=== PATIENT | male | born 1975 | race Native Hawaiian/Other Pacific Islander ===

== ENCOUNTER 2018-04-01 12:26 | Inpatient (IN) | payer OTHER ==
[2018-04-01] MEDS ORDERED: VITAMIN B-1 100 MG, FOLVITE 1 MG, INFUVITE 10 ML in NACL 0.9% 1000 ML 1,000 ML IV ONE (16:04)
[2018-04-01] MEDS: ATIVAN IV PRN ×7 (16:22→22:55)
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
[2018-04-01 16:38] LABS: Basophils # (Auto) 0.1 K/mm3 (0.0-0.1); Basophils % (Auto) 0.7 % (0.0-1.8); Eosinophils % (Auto) 0.1 % (0.0-4.3); Hemoglobin 8.6 gm/dl (11.8-15.2); Lymphocytes # (Auto) 0.7 K/mm3 (1.2-5.4); Lymphocytes % (Auto) 6.3 % (13.4-35.0); Mean Corpuscular HGB Conc 32 % (32-34); Mean Corpuscular Hemoglobin 27 pg (28-32); Mean Corpuscular Volume 84 fl (84-94); Monocytes # (Auto) 0.6 K/mm3 (0.0-0.8); Monocytes % (Auto) 5.3 % (0.0-7.3); Platelet Count 104 K/mm3 (140-440); Red Cell Distribution Width 17.3 % (13.2-15.2)
[2018-04-01 16:57] LABS: Alanine Aminotransferase 66 units/L (7-56); Albumin 4.5 g/dL (3.9-5); BUN/Creatinine Ratio 10; Blood Urea Nitrogen 6 mg/dL (9-20); Calcium 8.8 mg/dL (8.4-10.2); Hemolysis Index 0
--- NOTE | 2018-04-01 17:23 | History and Physical Report ---
History of Present Illness Chief complaint: Confused History of present illness: 43 YO Male with ETOH Dependence, HTN presents to ED for evaluation. Pt is confused and unable to provide history. Pt history taken from ED staff and patient Father. As per family, the patient normally drinks alcohol daily, but has not drank any alcohol in the past 2 days. pt has experienced nausea, vomiting, tremors, headache, as well as a witnessed seizure in the ED. Pt seen and evaluated in ED and found to have Delirium Tremens with CIWA score of 32 at time of exam,Encephalopathy, and Rhabdomyolysis. No further history obtainable. Pt is confused,and encephalopathic but has a positive gag reflex and is able to protect his airway. Past History Past Medical History: hypertension Past Surgical History: No surgical history, Other (reviewed) Social history: , lives with family, alcohol abuse. denies: smoking, prescription drug abuse, IV drug use Family history: hypertension Medications and Allergies Allergies Allergy/AdvReac Type Severity Reaction Status Date / Time No Known Allergies Allergy Unverified 04/13/16 13:49 Home Medications Medication Instructions Recorded Confirmed Last Taken Type No Known Home Medications [No 04/13/16 04/13/16 Unknown History Reported Home Medications] Active Meds: Active Medications Thiamine HCl 100 mg/ Folic Acid 1 mg/ Multivitamins/Minerals 10 ml/ Sodium Chloride 1,011.2 mls @ 250 mls/hr IV ONCE ONE Stop: 04/01/18 20:06 Last Admin: 04/01/18 16:47 Dose: 250 mls/hr Magnesium Sulfate (Magnesium Sulfate 2gm/50ml) 2 gm in 50 mls @ 100 mls/hr IV ONCE ONE Stop: 04/01/18 18:29 Lorazepam (Ativan) 2 mg IV Q1HR PRN PRN Reason: CIWA-Ar 8-15 Lorazepam (Ativan) 4 mg IV Q1HR PRN PRN Reason: CIWA-Ar 16-25 Lorazepam (Ativan) 4 mg IV Q15MIN PRN PRN Reason: CIWA-Ar >25 Last Admin: 04/01/18 16:22 Dose: 4 mg Review of Systems ROS unobtainable: due to mental status Exam - Constitutional Vitals: Temp Pulse Resp BP Pulse Ox 99.9 F H 106 H 21 130/81 98 04/01/18 12:44 04/01/18 12:44 04/01/18 16:30 04/01/18 12:44 04/01/18 12:44 General appearance: Present: severe distress - EENT Eyes: Present: miosis - Neck Neck: Present: supple, normal ROM - Respiratory Respiratory effort: normal Respiratory: bilateral: CTA - Cardiovascular Rhythm: other (tachycardia) Heart Sounds: Present: S1 & S2. Absent: rub, click - Extremities Extremities: pulses symmetrical, No edema Peripheral Pulses: within normal limits - Abdominal General gastrointestinal: Present: soft, non-tender, non-distended, normal bowel sounds Male genitourinary: Present: normal - Integumentary Integumentary: Present: clear, dry, clammy, decreased turgor - Musculoskeletal Musculoskeletal: generalized weakness - Psychiatric Psychiatric: no appropriate mood/affect, no intact judgment & insight, no memory intact, agitated - Neurologic Neurologic: no gait normal Results - Labs CBC & Chem 7: 04/01/18 16:30 04/01/18 16:30 Labs: Abnormal lab results 04/01/18 04/01/18 04/01/18 Range/Units 16:30 16:30 16:30 WBC 11.1 H (4.5-11.0) K/mm3 RBC 3.20 L (3.65-5.03) M/mm3 Hgb 8.6 L (11.8-15.2) gm/dl Hct 27.0 L (35.5-45.6) % MCH 27 L (28-32) pg RDW 17.3 H (13.2-15.2) % Plt Count 104 L (140-440) K/mm3 Lymph % (Auto) 6.3 L (13.4-35.0) % Lymph # 0.7 L (1.2-5.4) K/mm3 Seg Neutrophils % 87.6 H (40.0-70.0) % Seg Neutrophils # 9.7 H (1.8-7.7) K/mm3 Sodium 136 L (137-145) mmol/L Potassium 3.5 L (3.6-5.0) mmol/L Chloride 90.2 L (98-107) mmol/L BUN 6 L (9-20) mg/dL Creatinine 0.6 L (0.8-1.5) mg/dL Glucose 172 H (75-100) mg/dL Magnesium 1.40 L (1.7-2.3) mg/dL AST 107 H (5-40) units/L ALT 66 H (7-56) units/L Total Creatine Kinase 1502 H (55-170) units/L Total Protein 8.4 H (6.3-8.2) g/dL Assessment and Plan - Patient Problems (1) Delirium tremens Current Visit: No Status: Acute Plan to address problem: Admit to ICU: CIWA score 32. IVF resuscitation, Banana bag, CIWA scale, Benzodiazepine therpay as per CIWA, monitor uop q shift. The high probability of a clinically significant, sudden or life threatening deterioration of the [Neuro, Respiratory, CV] system(s) required my full and direct attention, intervention and personal management. The aggregate critical care time was [65] minutes. This time is in addition to time spent performing reported procedures but includes the following: [x] Data Review and interpretation [x] Patient assessment and monitoring of vital signs [x] Documentation [x] Medication orders and management (2) Rhabdomyolysis Current Visit: Yes Status: Acute Qualifiers: Encounter type: initial encounter Plan to address problem: IVF resuscitation therapy, monitor uop q shift, repeat ck level in am. (3) Encephalopathy Current Visit: Yes Status: Acute Plan to address problem: CT Head, neuro checks, treat DT's, seizure precautions, supportive care. (4) DVT prophylaxis Current Visit: Yes Status: Acute Plan to address problem: SCD to BLE while in bed.
[2018-04-01] MEDS ORDERED: SODIUM CHLORIDE FLUSH SYRINGE 10 ML IV PRN (17:28)
[2018-04-01] MEDS ORDERED: MAGNESIUM SULFATE 2GM/50ML 2 GM/50 ML BAG IV ONE (18:00)
[2018-04-01] MEDS ORDERED: NACL 0.45% 2,000 ML IV SCH (18:00)
[2018-04-01 18:36] LABS: Bilirubin,Urine NEG (Negative); Blood,Urine NEG (Negative); Color,Urine Amber (Yellow); Hyaline Casts,Urine 3 /LPF; Mucus,Urine 3+ /HPF
[2018-04-01 18:37] LABS: Protein,Urine >500 mg/dL (Negative)
[2018-04-01 18:44] LABS: Amphetamine Screen,Urine PRESUMPTIVE NEGATIVE; Benzodiazepines Screen,Urine PRESUMPTIVE NEGATIVE; Cannabinoid Screen,Urine PRESUMPTIVE NEGATIVE; Cocaine Screen,Urine PRESUMPTIVE NEGATIVE; Methadone Screen,Urine PRESUMPTIVE NEGATIVE; Opiate Screen,Urine PRESUMPTIVE NEGATIVE
--- NOTE | 2018-04-01 18:47 | Cat Scan Report ---
FINAL REPORT EXAM: CT HEAD/BRAIN WO CON HISTORY: confusion TECHNIQUE: 2.5 millimeter axial images from the skullbase to the vertex. Comparison: None FINDINGS: There is no evidence of an acute intracranial process, intracranial hemorrhage or mass effect. The ventricles are normal size. The visualized portions of the orbits, paranasal and mastoid sinuses are unremarkable. There is no evidence of fracture of the cranial vault. Evaluation of some of the facial bones is limited by motion artifact. There appears to be mild left periorbital and temporal scalp soft tissue swelling. IMPRESSION: 1. No evidence of an acute intracranial process, intracranial hemorrhage or mass effect. 2. Left periorbital and temporal scalp soft tissue swelling. 3. No evidence of fracture of the cranial vault. However, evaluation of some of the facial bones is limited by motion artifact.
[2018-04-02] MEDS ORDERED: NACL 0.45% 1000 ML 1,000 ML IV ONE (00:59)
[2018-04-02] MEDS ORDERED: NACL 0.45% 1000 ML IV SCH (01:00)
[2018-04-02] MEDS ORDERED: NACL 0.45% 1000 ML 1,000 ML IV SCH (02:00)
[2018-04-02] MEDS: ATIVAN IV PRN ×3 (03:45→22:23)
[2018-04-02 05:45] LABS: Basophils # (Auto) 0.1 K/mm3 (0.0-0.1); Basophils % (Auto) 0.9 % (0.0-1.8); Eosinophils % (Auto) 0.6 % (0.0-4.3); Hematocrit 25.7 % (35.5-45.6); Hemoglobin 8.2 gm/dl (11.8-15.2); Lymphocytes # (Auto) 0.9 K/mm3 (1.2-5.4); Mean Corpuscular HGB Conc 32 % (32-34); Mean Corpuscular Hemoglobin 27 pg (28-32); Mean Corpuscular Volume 84 fl (84-94); Monocytes # (Auto) 0.4 K/mm3 (0.0-0.8); Monocytes % (Auto) 6.6 % (0.0-7.3); Red Blood Count 3.07 M/mm3 (3.65-5.03); Red Cell Distribution Width 16.6 % (13.2-15.2)
[2018-04-02 06:02] LABS: Platelet Count 93 K/mm3 (140-440)
[2018-04-02 06:04] LABS: Alanine Aminotransferase 54 units/L (7-56); Albumin 3.8 g/dL (3.9-5); BUN/Creatinine Ratio 15; Blood Urea Nitrogen 6 mg/dL (9-20); Calcium 8.5 mg/dL (8.4-10.2); Hemolysis Index 17
--- NOTE | 2018-04-02 10:31 | Progress Note ---
<KRAIG DAVIS - Last Filed: 04/02/18 17:02> Assessment and Plan Assessment and plan: 1. Acute Delirium tremens Continue ICU monitoring CIWA protocol with Benzodiazepine PRN IVF resuscitation, Banana bag seizure precautions, 2. Acute Rhabdomyolysis IVF resuscitation therapy repeat ck level in am. 3. Acute Encephalopathy (due to DT CT Head result noted (left periorbital and frontal scalp soft tissue swelling) Continue neuro checks Continue CIWA protocol supportive care. 4. Thrombocytopenia (worsening) Continue to monitor platelet 5. anemia (likely due to chronic ETOH abuse) DVT/GI prophylaxis SCD to BLE while in bed. The high probability of a clinically significant, sudden or life threatening deterioration of the [Neuro, Respiratory, CV] system(s) required my full and direct attention, intervention and personal management. The aggregate critical care time was [35] minutes. This time is in addition to time spent performing reported procedures but includes the following: [x] Data Review and interpretation [x] Patient assessment and monitoring of vital signs [x] Documentation [x] Medication orders and management History Interval history: Pt is awake in bed, anxious, fine tremor noted, c/o headache, mother at bedside. Hospitalist Physical - Constitutional Vitals: Temp Pulse Resp BP Pulse Ox 98.1 F 94 H 16 109/77 98 04/02/18 08:00 04/02/18 10:11 04/02/18 10:11 04/02/18 10:11 04/02/18 10:11 General appearance: Present: mild distress, severe distress - EENT Eyes: Present: EOM intact ENT: hearing intact - Neck Neck: Present: normal ROM - Respiratory Respiratory effort: normal Respiratory: bilateral: CTA - Cardiovascular Rhythm: regular - Extremities Extremities: No edema Peripheral Pulses: within normal limits - Abdominal General gastrointestinal: non-tender, non-distended Localized gastrointestinal: tender: diffuse - Integumentary Integumentary: Present: warm, dry - Psychiatric Psychiatric: depressed Results - Labs CBC & Chem 7: 04/02/18 04:31 04/02/18 04:31 Labs: Laboratory Last Values WBC 6.2 K/mm3 (4.5-11.0) 04/02/18 04:31 RBC 3.07 M/mm3 (3.65-5.03) L 04/02/18 04:31 Hgb 8.2 gm/dl (11.8-15.2) L 04/02/18 04:31 Hct 25.7 % (35.5-45.6) L 04/02/18 04:31 MCV 84 fl (84-94) 04/02/18 04:31 MCH 27 pg (28-32) L 04/02/18 04:31 MCHC 32 % (32-34) 04/02/18 04:31 RDW 16.6 % (13.2-15.2) H 04/02/18 04:31 Plt Count 93 K/mm3 (140-440) L 04/02/18 04:31 Lymph % (Auto) 15.0 % (13.4-35.0) 04/02/18 04:31 [place] % (Auto) 6.6 % (0.0-7.3) 04/02/18 04:31 Eos % (Auto) 0.6 % (0.0-4.3) 04/02/18 04:31 Baso % (Auto) 0.9 % (0.0-1.8) 04/02/18 04:31 Lymph # 0.9 K/mm3 (1.2-5.4) L 04/02/18 04:31 [place] # 0.4 K/mm3 (0.0-0.8) 04/02/18 04:31 Eos # 0.0 K/mm3 (0.0-0.4) 04/02/18 04:31 Baso # 0.1 K/mm3 (0.0-0.1) 04/02/18 04:31 Seg Neutrophils % 76.9 % (40.0-70.0) H 04/02/18 04:31 Seg Neutrophils # 4.8 K/mm3 (1.8-7.7) 04/02/18 04:31 Sodium 138 mmol/L (137-145) 04/02/18 04:31 Potassium 3.3 mmol/L (3.6-5.0) L 04/02/18 04:31 Chloride 98.0 mmol/L (98-107) 04/02/18 04:31 Carbon Dioxide 26 mmol/L (22-30) 04/02/18 04:31 Anion Gap 17 mmol/L 04/02/18 04:31 BUN 6 mg/dL (9-20) L 04/02/18 04:31 Creatinine 0.4 mg/dL (0.8-1.5) L 04/02/18 04:31 Estimated GFR > 60 ml/min 04/02/18 04:31 BUN/Creatinine Ratio 15 % 04/02/18 04:31 Glucose 95 mg/dL (75-100) 04/02/18 04:31 POC Glucose 109 (70-105) H 04/01/18 21:26 Calcium 8.5 mg/dL (8.4-10.2) 04/02/18 04:31 Magnesium 1.40 mg/dL (1.7-2.3) L 04/01/18 16:30 Total Bilirubin 1.10 mg/dL (0.1-1.2) 04/02/18 04:31 AST 89 units/L (5-40) H 04/02/18 04:31 ALT 54 units/L (7-56) 04/02/18 04:31 Alkaline Phosphatase 73 units/L (35-129) 04/02/18 04:31 Total Creatine Kinase 1502 units/L (55-170) H 04/01/18 16:30 Total Protein 7.6 g/dL (6.3-8.2) 04/02/18 04:31 Albumin 3.8 g/dL (3.9-5) L 04/02/18 04:31 Albumin/Globulin Ratio 1.0 % 04/02/18 04:31 Urine Color Kylie (Yellow) 04/01/18 17:43 Urine Turbidity Slightly-cloudy (Clear) 04/01/18 17:43 Urine pH 8.0 (5.0-7.0) H 04/01/18 17:43 Ur Specific [place] 1.023 (1.003-1.030) 04/01/18 17:43 Urine Protein >500 mg/dL (Negative) 04/01/18 17:43 Urine Glucose (UA) Neg mg/dL (Negative) 04/01/18 17:43 Urine Ketones Neg mg/dL (Negative) 04/01/18 17:43 Urine Blood Neg (Negative) 04/01/18 17:43 Urine Nitrite Neg (Negative) 04/01/18 17:43 Urine Bilirubin Neg (Negative) 04/01/18 17:43 Urine Urobilinogen 4.0 mg/dL (<2.0) 04/01/18 17:43 Ur Leukocyte Esterase Neg (Negative) 04/01/18 17:43 Urine WBC (Auto) 2.0 /HPF (0.0-6.0) 04/01/18 17:43 Urine RBC (Auto) 3.0 /HPF (0.0-6.0) 04/01/18 17:43 U Epithel Cells (Auto) < 1.0 /HPF (0-13.0) 04/01/18 17:43 Hyaline Casts 3 /LPF 04/01/18 17:43 Urine Mucus 3+ /HPF 04/01/18 17:43 Urine Opiates Screen Presumptive negative 04/01/18 17:43 Urine Methadone Screen Presumptive negative 04/01/18 17:43 Ur Barbiturates Screen Presumptive negative 04/01/18 17:43 Ur Phencyclidine Scrn Presumptive negative 04/01/18 17:43 Ur Amphetamines Screen Presumptive negative 04/01/18 17:43 U Benzodiazepines Scrn Presumptive negative 04/01/18 17:43 Urine Cocaine Screen Presumptive negative 04/01/18 17:43 U Marijuana (THC) Screen Presumptive negative 04/01/18 17:43 Drugs of Abuse Note Disclamer 04/01/18 17:43 Plasma/Serum Alcohol < 0.01 % (0-0.07) 04/01/18 16:30 <FLAVIO ALBERTS R - Last Filed: 04/03/18 08:54> Assessment and Plan Assessment and plan: I saw and evaluated the patient. I agree with the findings and the plan of care as documented in the Nurse Practitioner's~note, with the following corrections and additions. Hospitalist Physical - Constitutional Vitals: Temp Pulse Resp BP Pulse Ox 98.0 F 100 H 20 132/80 93 04/03/18 06:04 04/03/18 06:04 04/03/18 06:04 04/03/18 06:04 04/03/18 06:04 Results - Labs CBC & Chem 7: 04/02/18 04:31 04/02/18 04:31 Labs: Laboratory Last Values WBC 6.2 K/mm3 (4.5-11.0) 04/02/18 04:31 RBC 3.07 M/mm3 (3.65-5.03) L 04/02/18 04:31 Hgb 8.2 gm/dl (11.8-15.2) L 04/02/18 04:31 Hct 25.7 % (35.5-45.6) L 04/02/18 04:31 MCV 84 fl (84-94) 04/02/18 04:31 MCH 27 pg (28-32) L 04/02/18 04:31 MCHC 32 % (32-34) 04/02/18 04:31 RDW 16.6 % (13.2-15.2) H 04/02/18 04:31 Plt Count 93 K/mm3 (140-440) L 04/02/18 04:31 Lymph % (Auto) 15.0 % (13.4-35.0) 04/02/18 04:31 [place] % (Auto) 6.6 % (0.0-7.3) 04/02/18 04:31 Eos % (Auto) 0.6 % (0.0-4.3) 04/02/18 04:31 Baso % (Auto) 0.9 % (0.0-1.8) 04/02/18 04:31 Lymph # 0.9 K/mm3 (1.2-5.4) L 04/02/18 04:31 [place] # 0.4 K/mm3 (0.0-0.8) 04/02/18 04:31 Eos # 0.0 K/mm3 (0.0-0.4) 04/02/18 04:31 Baso # 0.1 K/mm3 (0.0-0.1) 04/02/18 04:31 Seg Neutrophils % 76.9 % (40.0-70.0) H 04/02/18 04:31 Seg Neutrophils # 4.8 K/mm3 (1.8-7.7) 04/02/18 04:31 Sodium 138 mmol/L (137-145) 04/02/18 04:31 Potassium 3.3 mmol/L (3.6-5.0) L 04/02/18 04:31 Chloride 98.0 mmol/L (98-107) 04/02/18 04:31 Carbon Dioxide 26 mmol/L (22-30) 04/02/18 04:31 Anion Gap 17 mmol/L 04/02/18 04:31 BUN 6 mg/dL (9-20) L 04/02/18 04:31 Creatinine 0.4 mg/dL (0.8-1.5) L 04/02/18 04:31 Estimated GFR > 60 ml/min 04/02/18 04:31 BUN/Creatinine Ratio 15 % 04/02/18 04:31 Glucose 95 mg/dL (75-100) 04/02/18 04:31 POC Glucose 109 (70-105) H 04/01/18 21:26 Calcium 8.5 mg/dL (8.4-10.2) 04/02/18 04:31 Magnesium 1.40 mg/dL (1.7-2.3) L 04/01/18 16:30 Total Bilirubin 1.10 mg/dL (0.1-1.2) 04/02/18 04:31 AST 89 units/L (5-40) H 04/02/18 04:31 ALT 54 units/L (7-56) 04/02/18 04:31 Alkaline Phosphatase 73 units/L (35-129) 04/02/18 04:31 Total Creatine Kinase 1060 units/L (55-170) H 04/02/18 11:08 Total Protein 7.6 g/dL (6.3-8.2) 04/02/18 04:31 Albumin 3.8 g/dL (3.9-5) L 04/02/18 04:31 Albumin/Globulin Ratio 1.0 % 04/02/18 04:31 Urine Color Kylie (Yellow) 04/01/18 17:43 Urine Turbidity Slightly-cloudy (Clear) 04/01/18 17:43 Urine pH 8.0 (5.0-7.0) H 04/01/18 17:43 Ur Specific [place] 1.023 (1.003-1.030) 04/01/18 17:43 Urine Protein >500 mg/dL (Negative) 04/01/18 17:43 Urine Glucose (UA) Neg mg/dL (Negative) 04/01/18 17:43 Urine Ketones Neg mg/dL (Negative) 04/01/18 17:43 Urine Blood Neg (Negative) 04/01/18 17:43 Urine Nitrite Neg (Negative) 04/01/18 17:43 Urine Bilirubin Neg (Negative) 04/01/18 17:43 Urine Urobilinogen 4.0 mg/dL (<2.0) 04/01/18 17:43 Ur Leukocyte Esterase Neg (Negative) 04/01/18 17:43 Urine WBC (Auto) 2.0 /HPF (0.0-6.0) 04/01/18 17:43 Urine RBC (Auto) 3.0 /HPF (0.0-6.0) 04/01/18 17:43 U Epithel Cells (Auto) < 1.0 /HPF (0-13.0) 04/01/18 17:43 Hyaline Casts 3 /LPF 04/01/18 17:43 Urine Mucus 3+ /HPF 04/01/18 17:43 Urine Opiates Screen Presumptive negative 04/01/18 17:43 Urine Methadone Screen Presumptive negative 04/01/18 17:43 Ur Barbiturates Screen Presumptive negative 04/01/18 17:43 Ur Phencyclidine Scrn Presumptive negative 04/01/18 17:43 Ur Amphetamines Screen Presumptive negative 04/01/18 17:43 U Benzodiazepines Scrn Presumptive negative 04/01/18 17:43 Urine Cocaine Screen Presumptive negative 04/01/18 17:43 U Marijuana (THC) Screen Presumptive negative 04/01/18 17:43 Drugs of Abuse Note Disclamer 04/01/18 17:43 Plasma/Serum Alcohol < 0.01 % (0-0.07) 04/01/18 16:30
[2018-04-02] MEDS: SODIUM CHLORIDE FLUSH SYRINGE 10 ML IV SCH ×2 (10:34→19:24)
[2018-04-02] MEDS ORDERED: PNEUMOVAX 23 IM ONE (12:00)
[2018-04-02] MEDS ORDERED: AFLURIA QUAD 2018-2019 SYRINGE IM ONE (12:00)
--- NOTE | 2018-04-02 16:14 | Consultation ---
History of Present Illness Consult date: 04/02/18 Requesting physician: MARCY FRENCH Reason for consult: other (Alcohol Withdrawal) History of present illness: PULMONARY/CCM CONSULT NOTE (Full dictation # [id number]) Please see dictated notes for full details Past History Past Medical History: hypertension Past Surgical History: No surgical history, Other (reviewed) Social history: , lives with family, alcohol abuse. denies: smoking, prescription drug abuse, IV drug use Family history: hypertension Medications and Allergies Allergies Allergy/AdvReac Type Severity Reaction Status Date / Time No Known Allergies Allergy Unverified 04/13/16 13:49 Home Medications Medication Instructions Recorded Confirmed Last Taken Type No Known Home Medications [No 04/13/16 04/01/18 Unknown History Reported Home Medications] Active Meds: Active Medications Sodium Chloride (Nacl 0.45% 1000 Ml) 1,000 mls @ 100 mls/hr IV DIRECT JAYE Stop: 04/03/18 11:59 Last Admin: 04/02/18 11:22 Dose: 100 mls/hr Lorazepam (Ativan) 2 mg IV Q1HR PRN PRN Reason: CIWA-Ar 8-15 Lorazepam (Ativan) 4 mg IV Q1HR PRN PRN Reason: CIWA-Ar 16-25 Last Admin: 04/02/18 06:36 Dose: 4 mg Lorazepam (Ativan) 4 mg IV Q15MIN PRN PRN Reason: CIWA-Ar >25 Last Admin: 04/01/18 22:55 Dose: 4 mg Sodium Chloride (Sodium Chloride Flush Syringe 10 Ml) 10 ml IV BID JAYE Last Admin: 04/02/18 10:34 Dose: 10 ml Sodium Chloride (Sodium Chloride Flush Syringe 10 Ml) 10 ml IV PRN PRN PRN Reason: LINE FLUSH Physical Examination Vital signs: Vital Signs Temp Pulse Resp BP Pulse Ox 99.9 F H 106 H 20 130/81 98 04/01/18 12:44 04/01/18 12:44 04/01/18 12:44 04/01/18 12:44 04/01/18 12:44 Results - Laboratory Findings CBC and BMP: 04/05/18 05:23 04/05/18 05:23 Abnormal lab findings: Abnormal Labs 04/01/18 04/01/18 04/01/18 16:30 16:30 16:30 WBC 11.1 H RBC 3.20 L Hgb 8.6 L Hct 27.0 L MCH 27 L RDW 17.3 H Plt Count 104 L Lymph % (Auto) 6.3 L Lymph # 0.7 L Seg Neutrophils % 87.6 H Seg Neutrophils # 9.7 H Sodium 136 L Potassium 3.5 L Chloride 90.2 L BUN 6 L Creatinine 0.6 L Glucose 172 H POC Glucose Magnesium 1.40 L AST 107 H ALT 66 H Total Creatine Kinase 1502 H Total Protein 8.4 H Albumin Urine pH 04/01/18 04/01/18 04/02/18 17:43 21:26 04:31 WBC RBC 3.07 L Hgb 8.2 L Hct 25.7 L MCH 27 L RDW 16.6 H Plt Count 93 L Lymph % (Auto) Lymph # 0.9 L Seg Neutrophils % 76.9 H Seg Neutrophils # Sodium Potassium Chloride BUN Creatinine Glucose POC Glucose 109 H Magnesium AST ALT Total Creatine Kinase Total Protein Albumin Urine pH 8.0 H 04/02/18 04/02/18 04:31 11:08 WBC RBC Hgb Hct MCH RDW Plt Count Lymph % (Auto) Lymph # Seg Neutrophils % Seg Neutrophils # Sodium Potassium 3.3 L Chloride BUN 6 L Creatinine 0.4 L Glucose POC Glucose Magnesium AST 89 H ALT Total Creatine Kinase 1060 H Total Protein Albumin 3.8 L Urine pH
[2018-04-03] MEDS: ATIVAN IV PRN ×5 (04:59→22:41)
--- NOTE | 2018-04-03 08:00 | Progress Note ---
Assessment and Plan 1. Acute Delirium tremens 2. Acute Rhabdomyolysis 3. Acute Encephalopathy (due to DT 4. Thrombocytopenia (worsening) 5. anemia (likely due to chronic ETOH abuse) [facility] protocol with Benzodiazepine PRN IVF resuscitation, Banana bag seizure precautions, Subjective Date of service: 04/03/18 Objective Vital Signs - 12hr 04/02/18 04/02/18 04/03/18 21:34 22:00 00:01 Temperature 99.6 F Pulse Rate 109 H Respiratory 16 20 Rate Blood Pressure 110/74 129/79 O2 Sat by Pulse 95 Oximetry 04/03/18 06:04 Temperature 98.0 F Pulse Rate 100 H Respiratory 20 Rate Blood Pressure 132/80 O2 Sat by Pulse 93 Oximetry CBC and BMP: 04/02/18 04:31 04/02/18 04:31 Abnormal lab findings: Abnormal Labs 04/01/18 04/01/18 04/01/18 16:30 16:30 16:30 WBC 11.1 H RBC 3.20 L Hgb 8.6 L Hct 27.0 L MCH 27 L RDW 17.3 H Plt Count 104 L Lymph % (Auto) 6.3 L Lymph # 0.7 L Seg Neutrophils % 87.6 H Seg Neutrophils # 9.7 H Sodium 136 L Potassium 3.5 L Chloride 90.2 L BUN 6 L Creatinine 0.6 L Glucose 172 H POC Glucose Magnesium 1.40 L AST 107 H ALT 66 H Total Creatine Kinase 1502 H Total Protein 8.4 H Albumin Urine pH 04/01/18 04/01/18 04/02/18 17:43 21:26 04:31 WBC RBC 3.07 L Hgb 8.2 L Hct 25.7 L MCH 27 L RDW 16.6 H Plt Count 93 L Lymph % (Auto) Lymph # 0.9 L Seg Neutrophils % 76.9 H Seg Neutrophils # Sodium Potassium Chloride BUN Creatinine Glucose POC Glucose 109 H Magnesium AST ALT Total Creatine Kinase Total Protein Albumin Urine pH 8.0 H 04/02/18 04/02/18 04:31 11:08 WBC RBC Hgb Hct MCH RDW Plt Count Lymph % (Auto) Lymph # Seg Neutrophils % Seg Neutrophils # Sodium Potassium 3.3 L Chloride BUN 6 L Creatinine 0.4 L Glucose POC Glucose Magnesium AST 89 H ALT Total Creatine Kinase 1060 H Total Protein Albumin 3.8 L Urine pH
--- NOTE | 2018-04-03 10:26 | Progress Note ---
Assessment and Plan Assessment and plan: Delirium tremens CIWA protocol with Benzodiazepine PRN IVF resuscitation, Banana bag seizure precautions Rhabdomyolysis IVF resuscitation therapy repeat ck level in am. Acute Encephalopathy secondary to DTs CT Head result noted (left periorbital and frontal scalp soft tissue swelling) Continue neuro checks Continue CIWA protocol supportive care. Thrombocytopenia (worsening) Continue to monitor platelet anemia (likely due to chronic ETOH abuse) DVT/GI prophylaxis SCD to BLE while in bed. History Interval history: No new issues overnight Hospitalist Physical - Constitutional Vitals: Temp Pulse Resp BP Pulse Ox 98.0 F 100 H 20 132/80 93 04/03/18 06:04 04/03/18 06:04 04/03/18 06:04 04/03/18 06:04 04/03/18 06:04 General appearance: Present: no acute distress, well-nourished - EENT Eyes: Present: PERRL, EOM intact ENT: hearing intact, clear oral mucosa, dentition normal - Neck Neck: Present: supple, normal ROM - Respiratory Respiratory effort: normal Respiratory: bilateral: CTA - Cardiovascular Rhythm: regular Heart Sounds: Present: S1 & S2. Absent: gallop, rub - Extremities Extremities: no ischemia, No edema, Full ROM - Abdominal General gastrointestinal: soft, non-tender, non-distended, normal bowel sounds - Integumentary Integumentary: Present: clear, warm, dry - Neurologic Neurologic: CNII-XII intact, moves all extremities Results - Labs CBC & Chem 7: 04/02/18 04:31 04/02/18 04:31 Labs: Laboratory Last Values WBC 6.2 K/mm3 (4.5-11.0) 04/02/18 04:31 RBC 3.07 M/mm3 (3.65-5.03) L 04/02/18 04:31 Hgb 8.2 gm/dl (11.8-15.2) L 04/02/18 04:31 Hct 25.7 % (35.5-45.6) L 04/02/18 04:31 MCV 84 fl (84-94) 04/02/18 04:31 MCH 27 pg (28-32) L 04/02/18 04:31 MCHC 32 % (32-34) 04/02/18 04:31 RDW 16.6 % (13.2-15.2) H 04/02/18 04:31 Plt Count 93 K/mm3 (140-440) L 04/02/18 04:31 Lymph % (Auto) 15.0 % (13.4-35.0) 04/02/18 04:31 [place] % (Auto) 6.6 % (0.0-7.3) 04/02/18 04:31 Eos % (Auto) 0.6 % (0.0-4.3) 04/02/18 04:31 Baso % (Auto) 0.9 % (0.0-1.8) 04/02/18 04:31 Lymph # 0.9 K/mm3 (1.2-5.4) L 04/02/18 04:31 [place] # 0.4 K/mm3 (0.0-0.8) 04/02/18 04:31 Eos # 0.0 K/mm3 (0.0-0.4) 04/02/18 04:31 Baso # 0.1 K/mm3 (0.0-0.1) 04/02/18 04:31 Seg Neutrophils % 76.9 % (40.0-70.0) H 04/02/18 04:31 Seg Neutrophils # 4.8 K/mm3 (1.8-7.7) 04/02/18 04:31 Sodium 138 mmol/L (137-145) 04/02/18 04:31 Potassium 3.3 mmol/L (3.6-5.0) L 04/02/18 04:31 Chloride 98.0 mmol/L (98-107) 04/02/18 04:31 Carbon Dioxide 26 mmol/L (22-30) 04/02/18 04:31 Anion Gap 17 mmol/L 04/02/18 04:31 BUN 6 mg/dL (9-20) L 04/02/18 04:31 Creatinine 0.4 mg/dL (0.8-1.5) L 04/02/18 04:31 Estimated GFR > 60 ml/min 04/02/18 04:31 BUN/Creatinine Ratio 15 % 04/02/18 04:31 Glucose 95 mg/dL (75-100) 04/02/18 04:31 POC Glucose 109 (70-105) H 04/01/18 21:26 Calcium 8.5 mg/dL (8.4-10.2) 04/02/18 04:31 Magnesium 1.40 mg/dL (1.7-2.3) L 04/01/18 16:30 Total Bilirubin 1.10 mg/dL (0.1-1.2) 04/02/18 04:31 AST 89 units/L (5-40) H 04/02/18 04:31 ALT 54 units/L (7-56) 04/02/18 04:31 Alkaline Phosphatase 73 units/L (35-129) 04/02/18 04:31 Total Creatine Kinase 1060 units/L (55-170) H 04/02/18 11:08 Total Protein 7.6 g/dL (6.3-8.2) 04/02/18 04:31 Albumin 3.8 g/dL (3.9-5) L 04/02/18 04:31 Albumin/Globulin Ratio 1.0 % 04/02/18 04:31 Urine Color Kylie (Yellow) 04/01/18 17:43 Urine Turbidity Slightly-cloudy (Clear) 04/01/18 17:43 Urine pH 8.0 (5.0-7.0) H 04/01/18 17:43 Ur Specific [place] 1.023 (1.003-1.030) 04/01/18 17:43 Urine Protein >500 mg/dL (Negative) 04/01/18 17:43 Urine Glucose (UA) Neg mg/dL (Negative) 04/01/18 17:43 Urine Ketones Neg mg/dL (Negative) 04/01/18 17:43 Urine Blood Neg (Negative) 04/01/18 17:43 Urine Nitrite Neg (Negative) 04/01/18 17:43 Urine Bilirubin Neg (Negative) 04/01/18 17:43 Urine Urobilinogen 4.0 mg/dL (<2.0) 04/01/18 17:43 Ur Leukocyte Esterase Neg (Negative) 04/01/18 17:43 Urine WBC (Auto) 2.0 /HPF (0.0-6.0) 04/01/18 17:43 Urine RBC (Auto) 3.0 /HPF (0.0-6.0) 04/01/18 17:43 U Epithel Cells (Auto) < 1.0 /HPF (0-13.0) 04/01/18 17:43 Hyaline Casts 3 /LPF 04/01/18 17:43 Urine Mucus 3+ /HPF 04/01/18 17:43 Urine Opiates Screen Presumptive negative 04/01/18 17:43 Urine Methadone Screen Presumptive negative 04/01/18 17:43 Ur Barbiturates Screen Presumptive negative 04/01/18 17:43 Ur Phencyclidine Scrn Presumptive negative 04/01/18 17:43 Ur Amphetamines Screen Presumptive negative 04/01/18 17:43 U Benzodiazepines Scrn Presumptive negative 04/01/18 17:43 Urine Cocaine Screen Presumptive negative 04/01/18 17:43 U Marijuana (THC) Screen Presumptive negative 04/01/18 17:43 Drugs of Abuse Note Disclamer 04/01/18 17:43 Plasma/Serum Alcohol < 0.01 % (0-0.07) 04/01/18 16:30
[2018-04-03] MEDS ORDERED: HALDOL IM ONE ×2 (11:30→18:00)
[2018-04-04] MEDS: ATIVAN IV PRN ×4 (01:30→13:33)
[2018-04-04] MEDS: LIBRIUM PO PRN ×2 (03:42→09:34)
--- NOTE | 2018-04-04 08:45 | Progress Note ---
Assessment and Plan Assessment and plan: Delirium tremens [facility] protocol with Benzodiazepine and delivery PRN IVF resuscitation, Banana bag seizure precautions Restraints for safety. Rhabdomyolysis IVF resuscitation therapy repeat ck level in am. Acute Encephalopathy secondary to DTs CT Head result noted (left periorbital and frontal scalp soft tissue swelling) Continue neuro checks Continue [facility] protocol supportive care. Thrombocytopenia (worsening) Continue to monitor platelet anemia (likely due to chronic ETOH abuse) DVT/GI prophylaxis SCD to BLE while in bed. History Interval history: Patient with CIWA score greater than 30. Patient noted to be agitated during the night. Hospitalist Physical - Constitutional Vitals: Temp Pulse Resp BP Pulse Ox 98.7 F 111 H 22 134/79 95 04/04/18 06:03 04/04/18 08:38 04/04/18 08:38 04/04/18 08:38 04/04/18 08:38 General appearance: Present: no acute distress, well-nourished - EENT Eyes: Present: PERRL, EOM intact ENT: hearing intact, clear oral mucosa, dentition normal - Neck Neck: Present: supple, normal ROM - Respiratory Respiratory effort: normal Respiratory: bilateral: CTA - Cardiovascular Rhythm: regular Heart Sounds: Present: S1 & S2. Absent: gallop, rub - Extremities Extremities: no ischemia, No edema, Full ROM - Abdominal General gastrointestinal: soft, non-tender, non-distended, normal bowel sounds - Integumentary Integumentary: Present: clear, warm, dry - Neurologic Neurologic: CNII-XII intact, moves all extremities Results - Labs CBC & Chem 7: 04/02/18 04:31 04/02/18 04:31 Labs: Laboratory Last Values WBC 6.2 K/mm3 (4.5-11.0) 04/02/18 04:31 RBC 3.07 M/mm3 (3.65-5.03) L 04/02/18 04:31 Hgb 8.2 gm/dl (11.8-15.2) L 04/02/18 04:31 Hct 25.7 % (35.5-45.6) L 04/02/18 04:31 MCV 84 fl (84-94) 04/02/18 04:31 MCH 27 pg (28-32) L 04/02/18 04:31 MCHC 32 % (32-34) 04/02/18 04:31 RDW 16.6 % (13.2-15.2) H 04/02/18 04:31 Plt Count 93 K/mm3 (140-440) L 04/02/18 04:31 Lymph % (Auto) 15.0 % (13.4-35.0) 04/02/18 04:31 [place] % (Auto) 6.6 % (0.0-7.3) 04/02/18 04:31 Eos % (Auto) 0.6 % (0.0-4.3) 04/02/18 04:31 Baso % (Auto) 0.9 % (0.0-1.8) 04/02/18 04:31 Lymph # 0.9 K/mm3 (1.2-5.4) L 04/02/18 04:31 [place] # 0.4 K/mm3 (0.0-0.8) 04/02/18 04:31 Eos # 0.0 K/mm3 (0.0-0.4) 04/02/18 04:31 Baso # 0.1 K/mm3 (0.0-0.1) 04/02/18 04:31 Seg Neutrophils % 76.9 % (40.0-70.0) H 04/02/18 04:31 Seg Neutrophils # 4.8 K/mm3 (1.8-7.7) 04/02/18 04:31 Sodium 138 mmol/L (137-145) 04/02/18 04:31 Potassium 3.3 mmol/L (3.6-5.0) L 04/02/18 04:31 Chloride 98.0 mmol/L (98-107) 04/02/18 04:31 Carbon Dioxide 26 mmol/L (22-30) 04/02/18 04:31 Anion Gap 17 mmol/L 04/02/18 04:31 BUN 6 mg/dL (9-20) L 04/02/18 04:31 Creatinine 0.4 mg/dL (0.8-1.5) L 04/02/18 04:31 Estimated GFR > 60 ml/min 04/02/18 04:31 BUN/Creatinine Ratio 15 % 04/02/18 04:31 Glucose 95 mg/dL (75-100) 04/02/18 04:31 POC Glucose 109 (70-105) H 04/01/18 21:26 Calcium 8.5 mg/dL (8.4-10.2) 04/02/18 04:31 Magnesium 1.40 mg/dL (1.7-2.3) L 04/01/18 16:30 Total Bilirubin 1.10 mg/dL (0.1-1.2) 04/02/18 04:31 AST 89 units/L (5-40) H 04/02/18 04:31 ALT 54 units/L (7-56) 04/02/18 04:31 Alkaline Phosphatase 73 units/L (35-129) 04/02/18 04:31 Total Creatine Kinase 1060 units/L (55-170) H 04/02/18 11:08 Total Protein 7.6 g/dL (6.3-8.2) 04/02/18 04:31 Albumin 3.8 g/dL (3.9-5) L 04/02/18 04:31 Albumin/Globulin Ratio 1.0 % 04/02/18 04:31 Urine Color Kylie (Yellow) 04/01/18 17:43 Urine Turbidity Slightly-cloudy (Clear) 04/01/18 17:43 Urine pH 8.0 (5.0-7.0) H 04/01/18 17:43 Ur Specific [place] 1.023 (1.003-1.030) 04/01/18 17:43 Urine Protein >500 mg/dL (Negative) 04/01/18 17:43 Urine Glucose (UA) Neg mg/dL (Negative) 04/01/18 17:43 Urine Ketones Neg mg/dL (Negative) 04/01/18 17:43 Urine Blood Neg (Negative) 04/01/18 17:43 Urine Nitrite Neg (Negative) 04/01/18 17:43 Urine Bilirubin Neg (Negative) 04/01/18 17:43 Urine Urobilinogen 4.0 mg/dL (<2.0) 04/01/18 17:43 Ur Leukocyte Esterase Neg (Negative) 04/01/18 17:43 Urine WBC (Auto) 2.0 /HPF (0.0-6.0) 04/01/18 17:43 Urine RBC (Auto) 3.0 /HPF (0.0-6.0) 04/01/18 17:43 U Epithel Cells (Auto) < 1.0 /HPF (0-13.0) 04/01/18 17:43 Hyaline Casts 3 /LPF 04/01/18 17:43 Urine Mucus 3+ /HPF 04/01/18 17:43 Urine Opiates Screen Presumptive negative 04/01/18 17:43 Urine Methadone Screen Presumptive negative 04/01/18 17:43 Ur Barbiturates Screen Presumptive negative 04/01/18 17:43 Ur Phencyclidine Scrn Presumptive negative 04/01/18 17:43 Ur Amphetamines Screen Presumptive negative 04/01/18 17:43 U Benzodiazepines Scrn Presumptive negative 04/01/18 17:43 Urine Cocaine Screen Presumptive negative 04/01/18 17:43 U Marijuana (THC) Screen Presumptive negative 04/01/18 17:43 Drugs of Abuse Note Disclamer 04/01/18 17:43 Plasma/Serum Alcohol < 0.01 % (0-0.07) 04/01/18 16:30
[2018-04-05] MEDS ORDERED: TYLENOL PO ONE (00:30)
[2018-04-05 06:10] LABS: Hematocrit 26.6 % (35.5-45.6); Hemoglobin 8.5 gm/dl (11.8-15.2); Mean Corpuscular HGB Conc 32 % (32-34); Mean Corpuscular Hemoglobin 27 pg (28-32); Mean Corpuscular Volume 85 fl (84-94); Platelet Count 219 K/mm3 (140-440); Red Blood Count 3.12 M/mm3 (3.65-5.03); Red Cell Distribution Width 17.6 % (13.2-15.2)
[2018-04-05 06:55] LABS: BUN/Creatinine Ratio 36; Blood Urea Nitrogen 25 mg/dL (9-20); Hemolysis Index 0
[2018-04-05 07:19] LABS: Basophils % (Manual) 0 % (0.0-1.8); Total Cells Counted 100
[2018-04-05 07:20] LABS: Anisocytosis 1+; RBC Morphology Normal
[2018-04-05 07:21] LABS: Target Cells 1+
[2018-04-05] MEDS ORDERED: K-DUR PO ONE (08:00)
[2018-04-05] MEDS: KCL 10MEQ/100ML 10 MEQ/100 ML BAG IV SCH ×2 (10:34→12:09)
[2018-04-05] MEDS: FOLVITE PO SCH (10:34)
[2018-04-05] MEDS: VITAMIN B-1 PO SCH (10:34)
--- NOTE | 2018-04-05 15:51 | Consultation ---
PULMONARY CONSULTATION NOTE CONSULTING PHYSICIAN: Dr. Quintero. REASON FOR CONSULTATION: Delirium tremens. CHIEF COMPLAINT AND HISTORY OF PRESENT ILLNESS: As follows: The patient is a 43-year-old male with a past medical history significant amongst other things for a alcohol abuse and hypertension, brought into the Emergency Room by his family. He was confused and unable to give a history. He is a daily drinker. He had not taken anything about a couple of days. He had had nausea, vomiting, tremors, headaches and then had a witnessed seizure in the Emergency Room. CIWA score of 32 at the time of the exam with evidence of some rhabdomyolysis. He was evaluated in the Emergency Room and because of the high CIWA score, he was transferred to the intensive care unit. When I stopped by to see him, he was doing better, family was in the room, he was able to answer some of my questions appropriately, well sedated. No more vomiting while in the intensive care unit. No history of GI bleeding either in remotely or currently. With regards to tobacco use/abuse history, they had denied any tobacco abuse. PAST MEDICAL HISTORY: Hypertension. PAST SURGICAL HISTORY: Family denied. MEDICATIONS: He was on at the time I stopped by to see him, according to the medication administration record included the following: He had been on Librium 100 mg p.o. p.r.n. via the CIWA protocol. He was also given Ativan per CIWA score. He had received some Haldol and Tylenol 650 mg p.o. also received once. He was also on Seroquel 100 mg p.o. b.i.d. He had received a banana bag with thiamine and folic acid. ALLERGIES: No known drug allergies. DIET: Obese gentleman, acute weight loss or gain history is unknown. FAMILY AND SOCIAL HISTORY: Lives in the community. Family is in the room. His was in the room. He has a history of alcohol abuse. Family denied tobacco or illicit drug use or abuse. Family history, otherwise positive for hypertension. REVIEW OF SYSTEMS: Unobtainable secondary to the patient's medical and mental condition. He did have the seizure in the Emergency Room. Since he has been in the hospital, no gross hematochezia or melena, no gross hematuria, no hematemesis, no hemoptysis. REVIEW OF SYSTEMS: Otherwise unobtainable. PHYSICAL EXAMINATION: VITAL SIGNS: At presentation in the emergency room, he was low grade fever, temperature 99.9 degrees Fahrenheit with a pulse of 106, respiratory rate of 20 and blood pressure 130/81, oxygen sats were 98%, inspired oxygen concentration at that time was not recorded. At time of my evaluation, he was 97% on room air. GENERAL: A middle-aged male. Normocephalic, atraumatic, sleeping in the ICU bed without overt respiratory distress. HEAD, EYES, EARS, NOSE AND THROAT: He is anicteric. No conjunctival erythema. Oropharynx shows moist. No gross jugular venous distention, no palpable lymph nodes in the supraclavicular or submandibular lymph node chains. LUNGS: Auscultation of both lung flynn was unremarkable. Lungs were clear bilaterally. HEART: Heart sounds 1 and 2 are heard, regular rate and rhythm at the time of my evaluation without rubs or murmurs. ABDOMEN: Soft, full, bowel sounds are positive, nontender. No palpable hepatosplenomegaly. EXTREMITIES: Without overt digital clubbing, cyanosis, or pedal edema. Dorsalis pedis pulses were palpable bilaterally. NEUROLOGIC: The pupils were equal, round, about 3 mm, reactive to light. Extraocular muscle movements appeared intact. He did have spontaneous movements to all extremities. The skin was of poor turgor without cellulitis or rash. It was warm to touch. LABORATORY DATA: From my review are as follows: Admission white cell count 11,100, hemoglobin 8.6, hematocrit 27.0, and platelet count 104. No band forms. Serum sodium 136, potassium 3.5, chloride 90, bicarbonate 23, BUN 6, creatinine 0.6, and glucose was 172. Magnesium was 1.4, AST was up at 107, ALT 66 and CPK 1502. Urinalysis was negative for nitrites and leukocyte esterase. Urine drug screen was negative. Alcohol level was undetectable. No cultures. CT scan of the head was done. I have reviewed the radiologist's interpretation, no acute intracranial process was noted. ASSESSMENT: 1. Alcohol withdrawal with delirium tremens. 2. History of alcohol abuse. 3. Hypertension. 4. Anemia. 5. Thrombocytopenia. 6. Mild hyponatremia. 7. Mild hypokalemia. 8. Hypomagnesemia. 9. Mild rhabdomyolysis. 10. Acute encephalopathy. PLAN: Continue the CIWA protocol. Continue replacement with thiamine and folic acid. Magnesium I believe has been replaced. We will also monitor serum phosphorous during this admission. Gentle hydration while monitoring his serum CPK levels. Family is opted to remain in the room at all times and this should help redirect the patient. Once he is doing better, follow tobacco abstinence will be consulted. He will be placed on GI prophylaxis as well as DVT prophylaxis with SCDs in light of the thrombocytopenia. Flu and pneumonia vaccination will be addressed per protocol. Thank you very much for the consult. We will follow along and make further recommendations as picture progresses/becomes clearer. CIWA score is much better. He will be transferred out of the ICU. JOB# [id number] ALEJANDRO/WESLEY
--- NOTE | 2018-04-05 17:48 | Progress Note ---
Assessment and Plan Assessment and plan: --Severe hypokalemia; replace per protocol and monitor levels Magnesium within normal limits --Delirium tremens/alcohol withdrawal symptoms Continue CICT protocol with benzo diazepam IV fluids, thiamine and folic acid, seizure precautions Restraints for safety, supportive care --Rhabdomyolysis; continue IV fluids Input and output monitoring, follow CK levels, trending down --Metabolic Encephalopathy secondary to alcohol withdrawal symptom CT Head (left periorbital and frontal scalp soft tissue swelling) Continue neuro checks, continue CIWA protocol --Thrombocytopenia ; alcohol-related Mild improvement today, closely monitor --anemia (likely due to chronic ETOH abuse) No external evidence of bleeding, closely monitor H&H transfuse as needed --DVT prophylaxis; SCDs, no pharmacologic anticoagulation in view of anemia And thrombocytopenia --Chronic alcohol use; will recreational counselor the patient advised to quit alcohol intake when patient is stable Patient may need alcohol rehabilitation upon discharge Plan of care reviewed with the patient's family at the bedside and the nurse History Interval history: Patient seen and examined medical records reviewed Patient is admitted with alcohol withdrawal, on CIWA protocol Patient still has tremulousness and agitation Restraints for safety Alert and awake, confused at times Vital signs reviewed Hospitalist Physical - Constitutional Vitals: Temp Pulse Resp BP Pulse Ox 99.4 F 80 18 109/70 96 04/05/18 05:42 04/05/18 05:42 04/05/18 05:42 04/05/18 05:42 04/05/18 10:00 General appearance: Present: no acute distress, well-nourished, other (confused and tremulous) - EENT Eyes: Present: PERRL - Neck Neck: Present: supple, normal ROM - Respiratory Respiratory effort: labored Respiratory: bilateral: diminished, negative: rales, rhonchi, wheezing - Cardiovascular Rhythm: regular Heart Sounds: Present: S1 & S2 - Extremities Extremities: no ischemia, No edema - Abdominal General gastrointestinal: soft, non-tender, non-distended, normal bowel sounds - Integumentary Integumentary: Present: clear, warm - Psychiatric Psychiatric: agitated, other (confused at times) - Neurologic Neurologic: moves all extremities Results - Labs CBC & Chem 7: 04/05/18 05:23 04/05/18 05:23 Labs: Laboratory Last Values WBC 4.4 K/mm3 (4.5-11.0) L 04/05/18 05:23 RBC 3.12 M/mm3 (3.65-5.03) L 04/05/18 05:23 Hgb 8.5 gm/dl (11.8-15.2) L 04/05/18 05:23 Hct 26.6 % (35.5-45.6) L 04/05/18 05:23 MCV 85 fl (84-94) 04/05/18 05:23 MCH 27 pg (28-32) L 04/05/18 05:23 MCHC 32 % (32-34) 04/05/18 05:23 RDW 17.6 % (13.2-15.2) H 04/05/18 05:23 Plt Count 219 K/mm3 (140-440) 04/05/18 05:23 Lymph % (Auto) 15.0 % (13.4-35.0) 04/02/18 04:31 [place] % (Auto) 6.6 % (0.0-7.3) 04/02/18 04:31 Eos % (Auto) 0.6 % (0.0-4.3) 04/02/18 04:31 Baso % (Auto) 0.9 % (0.0-1.8) 04/02/18 04:31 Lymph # 0.9 K/mm3 (1.2-5.4) L 04/02/18 04:31 [place] # 0.4 K/mm3 (0.0-0.8) 04/02/18 04:31 Eos # 0.0 K/mm3 (0.0-0.4) 04/02/18 04:31 Baso # 0.1 K/mm3 (0.0-0.1) 04/02/18 04:31 Add Manual Diff Complete 04/05/18 05:23 Total Counted 100 04/05/18 05:23 Seg Neutrophils % 76.9 % (40.0-70.0) H 04/02/18 04:31 Seg Neuts % (Manual) 72.0 % (40.0-70.0) H 04/05/18 05:23 Band Neutrophils % 0 % 04/05/18 05:23 Lymphocytes % (Manual) 19.0 % (13.4-35.0) 04/05/18 05:23 Reactive Lymphs % (Man) 0 % 04/05/18 05:23 Monocytes % (Manual) 5.0 % (0.0-7.3) 04/05/18 05:23 Eosinophils % (Manual) 4.0 % (0.0-4.3) 04/05/18 05:23 Basophils % (Manual) 0 % (0.0-1.8) 04/05/18 05:23 Metamyelocytes % 0 % 04/05/18 05:23 Myelocytes % 0 % 04/05/18 05:23 Promyelocytes % 0 % 04/05/18 05:23 Blast Cells % 0 % 04/05/18 05:23 Nucleated RBC % Not Reportable 04/05/18 05:23 Seg Neutrophils # 4.8 K/mm3 (1.8-7.7) 04/02/18 04:31 Seg Neutrophils # Man 3.2 K/mm3 (1.8-7.7) 04/05/18 05:23 Band Neutrophils # 0.0 K/mm3 04/05/18 05:23 Lymphocytes # (Manual) 0.8 K/mm3 (1.2-5.4) L 04/05/18 05:23 Abs React Lymphs (Man) 0.0 K/mm3 04/05/18 05:23 Monocytes # (Manual) 0.2 K/mm3 (0.0-0.8) 04/05/18 05:23 Eosinophils # (Manual) 0.2 K/mm3 (0.0-0.4) 04/05/18 05:23 Basophils # (Manual) 0.0 K/mm3 (0.0-0.1) 04/05/18 05:23 Metamyelocytes # 0.0 K/mm3 04/05/18 05:23 Myelocytes # 0.0 K/mm3 04/05/18 05:23 Promyelocytes # 0.0 K/mm3 04/05/18 05:23 Blast Cells # 0.0 K/mm3 04/05/18 05:23 WBC Morphology Not Reportable 04/05/18 05:23 Hypersegmented Neuts Not Reportable 04/05/18 05:23 Hyposegmented Neuts Not Reportable 04/05/18 05:23 Hypogranular Neuts Not Reportable 04/05/18 05:23 Smudge Cells Not Reportable 04/05/18 05:23 Toxic Granulation Not Reportable 04/05/18 05:23 Toxic Vacuolation Not Reportable 04/05/18 05:23 Dohle Bodies Not Reportable 04/05/18 05:23 Pelger-Huet Anomaly Not Reportable 04/05/18 05:23 Joyce Rods Not Reportable 04/05/18 05:23 Platelet Estimate Appears normal 04/05/18 05:23 Clumped Platelets Not Reportable 04/05/18 05:23 Plt Clumps, EDTA Not Reportable 04/05/18 05:23 Large Platelets Not Reportable 04/05/18 05:23 Giant Platelets Not Reportable 04/05/18 05:23 Platelet Satelliting Not Reportable 04/05/18 05:23 Plt Morphology Comment Not Reportable 04/05/18 05:23 RBC Morphology Normal 04/05/18 05:23 Dimorphic RBCs Not Reportable 04/05/18 05:23 Polychromasia Not Reportable 04/05/18 05:23 Hypochromasia Not Reportable 04/05/18 05:23 Poikilocytosis Not Reportable 04/05/18 05:23 Anisocytosis 1+ 04/05/18 05:23 Microcytosis Few 04/05/18 05:23 Macrocytosis Not Reportable 04/05/18 05:23 Spherocytes Not Reportable 04/05/18 05:23 Pappenheimer Bodies Not Reportable 04/05/18 05:23 Sickle Cells Not Reportable 04/05/18 05:23 Target Cells 1+ 04/05/18 05:23 Tear Drop Cells Not Reportable 04/05/18 05:23 Ovalocytes Not Reportable 04/05/18 05:23 Helmet Cells Not Reportable 04/05/18 05:23 Montesinos-[place] Bodies Not Reportable 04/05/18 05:23 [place] Rings Not Reportable 04/05/18 05:23 [place] Cells Not Reportable 04/05/18 05:23 Bite Cells Not Reportable 04/05/18 05:23 Crenated Cell Not Reportable 04/05/18 05:23 Elliptocytes Not Reportable 04/05/18 05:23 Acanthocytes (Spur) Not Reportable 04/05/18 05:23 Rouleaux Not Reportable 04/05/18 05:23 Hemoglobin C Crystals Not Reportable 04/05/18 05:23 Schistocytes Not Reportable 04/05/18 05:23 Malaria parasites Not Reportable 04/05/18 05:23 Timothy Bodies Not Reportable 04/05/18 05:23 Hem Pathologist Commnt No 04/05/18 05:23 Sodium 143 mmol/L (137-145) 04/05/18 05:23 Potassium 2.9 mmol/L (3.6-5.0) L* 04/05/18 05:23 Chloride 105.5 mmol/L (98-107) 04/05/18 05:23 Carbon Dioxide 23 mmol/L (22-30) 04/05/18 05:23 Anion Gap 17 mmol/L 04/05/18 05:23 BUN 25 mg/dL (9-20) H 04/05/18 05:23 Creatinine 0.7 mg/dL (0.8-1.5) L D 04/05/18 05:23 Estimated GFR > 60 ml/min 04/05/18 05:23 BUN/Creatinine Ratio 36 % 04/05/18 05:23 Glucose 99 mg/dL (75-100) 04/05/18 05:23 POC Glucose 109 (70-105) H 04/01/18 21:26 Calcium 9.0 mg/dL (8.4-10.2) 04/05/18 05:23 Phosphorus 3.80 mg/dL (2.5-4.5) 04/05/18 08:32 Magnesium 2.30 mg/dL (1.7-2.3) 04/05/18 05:23 Total Bilirubin 1.10 mg/dL (0.1-1.2) 04/02/18 04:31 AST 89 units/L (5-40) H 04/02/18 04:31 ALT 54 units/L (7-56) 04/02/18 04:31 Alkaline Phosphatase 73 units/L (35-129) 04/02/18 04:31 Total Creatine Kinase 843 units/L (55-170) H 04/05/18 05:23 Total Protein 7.6 g/dL (6.3-8.2) 04/02/18 04:31 Albumin 3.8 g/dL (3.9-5) L 04/02/18 04:31 Albumin/Globulin Ratio 1.0 % 04/02/18 04:31 Urine Color Kylie (Yellow) 04/01/18 17:43 Urine Turbidity Slightly-cloudy (Clear) 04/01/18 17:43 Urine pH 8.0 (5.0-7.0) H 04/01/18 17:43 Ur Specific [place] 1.023 (1.003-1.030) 04/01/18 17:43 Urine Protein >500 mg/dL (Negative) 04/01/18 17:43 Urine Glucose (UA) Neg mg/dL (Negative) 04/01/18 17:43 Urine Ketones Neg mg/dL (Negative) 04/01/18 17:43 Urine Blood Neg (Negative) 04/01/18 17:43 Urine Nitrite Neg (Negative) 04/01/18 17:43 Urine Bilirubin Neg (Negative) 04/01/18 17:43 Urine Urobilinogen 4.0 mg/dL (<2.0) 04/01/18 17:43 Ur Leukocyte Esterase Neg (Negative) 04/01/18 17:43 Urine WBC (Auto) 2.0 /HPF (0.0-6.0) 04/01/18 17:43 Urine RBC (Auto) 3.0 /HPF (0.0-6.0) 04/01/18 17:43 U Epithel Cells (Auto) < 1.0 /HPF (0-13.0) 04/01/18 17:43 Hyaline Casts 3 /LPF 04/01/18 17:43 Urine Mucus 3+ /HPF 04/01/18 17:43 Urine Opiates Screen Presumptive negative 04/01/18 17:43 Urine Methadone Screen Presumptive negative 04/01/18 17:43 Ur Barbiturates Screen Presumptive negative 04/01/18 17:43 Ur Phencyclidine Scrn Presumptive negative 04/01/18 17:43 Ur Amphetamines Screen Presumptive negative 04/01/18 17:43 U Benzodiazepines Scrn Presumptive negative 04/01/18 17:43 Urine Cocaine Screen Presumptive negative 04/01/18 17:43 U Marijuana (THC) Screen Presumptive negative 04/01/18 17:43 Drugs of Abuse Note Disclamer 04/01/18 17:43 Plasma/Serum Alcohol < 0.01 % (0-0.07) 04/01/18 16:30
[2018-04-06 05:25] LABS: Basophils # (Auto) 0.1 K/mm3 (0.0-0.1); Basophils % (Auto) 1.6 % (0.0-1.8); Eosinophils # (Auto) 0.3 K/mm3 (0.0-0.4); Hemoglobin 8.6 gm/dl (11.8-15.2); Mean Corpuscular HGB Conc 32 % (32-34); Mean Corpuscular Hemoglobin 28 pg (28-32); Mean Corpuscular Volume 87 fl (84-94); Monocytes # (Auto) 0.6 K/mm3 (0.0-0.8); Platelet Count 243 K/mm3 (140-440); Red Blood Count 3.12 M/mm3 (3.65-5.03); Red Cell Distribution Width 17.4 % (13.2-15.2)
[2018-04-06 05:41] LABS: BUN/Creatinine Ratio 28; Blood Urea Nitrogen 14 mg/dL (9-20); Calcium 8.5 mg/dL (8.4-10.2); Hemolysis Index 5
[2018-04-06] MEDS: VITAMIN B-1 PO SCH (09:46)
[2018-04-06] MEDS: FOLVITE PO SCH (09:46)
--- NOTE | 2018-04-06 10:10 | Progress Note ---
Assessment and Plan Assessment and plan: -- hypokalemia; replace per protocol and monitor levels Magnesium within normal limits --Delirium tremens/alcohol withdrawal symptoms Continue CIWA protocol with benzo diazepam IV fluids, thiamine and folic acid, seizure precautions Restraints for safety, supportive care --Rhabdomyolysis; evidence trending down continue IV fluids --Metabolic Encephalopathy secondary to alcohol withdrawal symptom CT Head (left periorbital and frontal scalp soft tissue swelling) More alert and awake today, responding appropriately --Thrombocytopenia ; alcohol-related Mild improvement today, closely monitor --anemia (likely due to chronic ETOH abuse) No external evidence of bleeding, closely monitor H&H transfuse as needed --DVT prophylaxis; SCDs, no pharmacologic anticoagulation in view of anemia And thrombocytopenia --Chronic alcohol use; will family court counsellor the patient advised to quit alcohol intake when patient is stable Ambulate as tolerated, physical therapy evaluation and treat Possible discharge in 1-2 days home with family, home health as needed Patient may need alcohol rehabilitation upon discharge Plan of care reviewed with the patient's family at the bedside and the nurse History Interval history: Patient seen and examined medical records reviewed No new events reported by the nursing Off restraints, no significant withdrawal symptoms Alert and awake, communicated through a bilingual son at the bedside Vital signs reviewed Hospitalist Physical - Constitutional Vitals: Temp Pulse Resp BP Pulse Ox 98.1 F 63 18 110/66 97 04/06/18 06:07 04/06/18 06:07 04/06/18 06:07 04/06/18 06:07 04/06/18 06:07 General appearance: Present: no acute distress, well-nourished, other (no agitation or tremulousness) - EENT Eyes: Present: PERRL, EOM intact - Neck Neck: Present: supple, normal ROM - Respiratory Respiratory effort: normal Respiratory: bilateral: diminished, negative: rales, rhonchi, wheezing - Cardiovascular Rhythm: regular Heart Sounds: Present: S1 & S2 - Extremities Extremities: no ischemia, No edema - Abdominal General gastrointestinal: soft, non-tender, non-distended, normal bowel sounds - Integumentary Integumentary: Present: clear, warm - Psychiatric Psychiatric: appropriate mood/affect, cooperative - Neurologic Neurologic: CNII-XII intact, moves all extremities Results - Labs CBC & Chem 7: 04/06/18 05:02 04/06/18 05:02 Labs: Laboratory Last Values WBC 4.4 K/mm3 (4.5-11.0) L 04/06/18 05:02 RBC 3.12 M/mm3 (3.65-5.03) L 04/06/18 05:02 Hgb 8.6 gm/dl (11.8-15.2) L 04/06/18 05:02 Hct 27.0 % (35.5-45.6) L 04/06/18 05:02 MCV 87 fl (84-94) 04/06/18 05:02 MCH 28 pg (28-32) 04/06/18 05:02 MCHC 32 % (32-34) 04/06/18 05:02 RDW 17.4 % (13.2-15.2) H 04/06/18 05:02 Plt Count 243 K/mm3 (140-440) 04/06/18 05:02 Lymph % (Auto) 23.0 % (13.4-35.0) 04/06/18 05:02 [place] % (Auto) 13.0 % (0.0-7.3) H 04/06/18 05:02 Eos % (Auto) 6.0 % (0.0-4.3) H 04/06/18 05:02 Baso % (Auto) 1.6 % (0.0-1.8) 04/06/18 05:02 Lymph # 1.0 K/mm3 (1.2-5.4) L 04/06/18 05:02 [place] # 0.6 K/mm3 (0.0-0.8) 04/06/18 05:02 Eos # 0.3 K/mm3 (0.0-0.4) 04/06/18 05:02 Baso # 0.1 K/mm3 (0.0-0.1) 04/06/18 05:02 Add Manual Diff Complete 04/05/18 05:23 Total Counted 100 04/05/18 05:23 Seg Neutrophils % 56.4 % (40.0-70.0) 04/06/18 05:02 Seg Neuts % (Manual) 72.0 % (40.0-70.0) H 04/05/18 05:23 Band Neutrophils % 0 % 04/05/18 05:23 Lymphocytes % (Manual) 19.0 % (13.4-35.0) 04/05/18 05:23 Reactive Lymphs % (Man) 0 % 04/05/18 05:23 Monocytes % (Manual) 5.0 % (0.0-7.3) 04/05/18 05:23 Eosinophils % (Manual) 4.0 % (0.0-4.3) 04/05/18 05:23 Basophils % (Manual) 0 % (0.0-1.8) 04/05/18 05:23 Metamyelocytes % 0 % 04/05/18 05:23 Myelocytes % 0 % 04/05/18 05:23 Promyelocytes % 0 % 04/05/18 05:23 Blast Cells % 0 % 04/05/18 05:23 Nucleated RBC % Not Reportable 04/05/18 05:23 Seg Neutrophils # 2.5 K/mm3 (1.8-7.7) 04/06/18 05:02 Seg Neutrophils # Man 3.2 K/mm3 (1.8-7.7) 04/05/18 05:23 Band Neutrophils # 0.0 K/mm3 04/05/18 05:23 Lymphocytes # (Manual) 0.8 K/mm3 (1.2-5.4) L 04/05/18 05:23 Abs React Lymphs (Man) 0.0 K/mm3 04/05/18 05:23 Monocytes # (Manual) 0.2 K/mm3 (0.0-0.8) 04/05/18 05:23 Eosinophils # (Manual) 0.2 K/mm3 (0.0-0.4) 04/05/18 05:23 Basophils # (Manual) 0.0 K/mm3 (0.0-0.1) 04/05/18 05:23 Metamyelocytes # 0.0 K/mm3 04/05/18 05:23 Myelocytes # 0.0 K/mm3 04/05/18 05:23 Promyelocytes # 0.0 K/mm3 04/05/18 05:23 Blast Cells # 0.0 K/mm3 04/05/18 05:23 WBC Morphology Not Reportable 04/05/18 05:23 Hypersegmented Neuts Not Reportable 04/05/18 05:23 Hyposegmented Neuts Not Reportable 04/05/18 05:23 Hypogranular Neuts Not Reportable 04/05/18 05:23 Smudge Cells Not Reportable 04/05/18 05:23 Toxic Granulation Not Reportable 04/05/18 05:23 Toxic Vacuolation Not Reportable 04/05/18 05:23 Dohle Bodies Not Reportable 04/05/18 05:23 Pelger-Huet Anomaly Not Reportable 04/05/18 05:23 Joyce Rods Not Reportable 04/05/18 05:23 Platelet Estimate Appears normal 04/05/18 05:23 Clumped Platelets Not Reportable 04/05/18 05:23 Plt Clumps, EDTA Not Reportable 04/05/18 05:23 Large Platelets Not Reportable 04/05/18 05:23 Giant Platelets Not Reportable 04/05/18 05:23 Platelet Satelliting Not Reportable 04/05/18 05:23 Plt Morphology Comment Not Reportable 04/05/18 05:23 RBC Morphology Normal 04/05/18 05:23 Dimorphic RBCs Not Reportable 04/05/18 05:23 Polychromasia Not Reportable 04/05/18 05:23 Hypochromasia Not Reportable 04/05/18 05:23 Poikilocytosis Not Reportable 04/05/18 05:23 Anisocytosis 1+ 04/05/18 05:23 Microcytosis Few 04/05/18 05:23 Macrocytosis Not Reportable 04/05/18 05:23 Spherocytes Not Reportable 04/05/18 05:23 Pappenheimer Bodies Not Reportable 04/05/18 05:23 Sickle Cells Not Reportable 04/05/18 05:23 Target Cells 1+ 04/05/18 05:23 Tear Drop Cells Not Reportable 04/05/18 05:23 Ovalocytes Not Reportable 04/05/18 05:23 Helmet Cells Not Reportable 04/05/18 05:23 Montesinos-[place] Bodies Not Reportable 04/05/18 05:23 [place] Rings Not Reportable 04/05/18 05:23 [place] Cells Not Reportable 04/05/18 05:23 Bite Cells Not Reportable 04/05/18 05:23 Crenated Cell Not Reportable 04/05/18 05:23 Elliptocytes Not Reportable 04/05/18 05:23 Acanthocytes (Spur) Not Reportable 04/05/18 05:23 Rouleaux Not Reportable 04/05/18 05:23 Hemoglobin C Crystals Not Reportable 04/05/18 05:23 Schistocytes Not Reportable 04/05/18 05:23 Malaria parasites Not Reportable 04/05/18 05:23 Timothy Bodies Not Reportable 04/05/18 05:23 Hem Pathologist Commnt No 04/05/18 05:23 Sodium 138 mmol/L (137-145) 04/06/18 05:02 Potassium 3.4 mmol/L (3.6-5.0) L 04/06/18 05:02 Chloride 101.7 mmol/L (98-107) 04/06/18 05:02 Carbon Dioxide 24 mmol/L (22-30) 04/06/18 05:02 Anion Gap 16 mmol/L 04/06/18 05:02 BUN 14 mg/dL (9-20) 04/06/18 05:02 Creatinine 0.5 mg/dL (0.8-1.5) L 04/06/18 05:02 Estimated GFR > 60 ml/min 04/06/18 05:02 BUN/Creatinine Ratio 28 % 04/06/18 05:02 Glucose 99 mg/dL (75-100) 04/06/18 05:02 POC Glucose 109 (70-105) H 04/01/18 21:26 Calcium 8.5 mg/dL (8.4-10.2) 04/06/18 05:02 Phosphorus 3.80 mg/dL (2.5-4.5) 04/05/18 08:32 Magnesium 2.20 mg/dL (1.7-2.3) 04/06/18 05:02 Total Bilirubin 1.10 mg/dL (0.1-1.2) 04/02/18 04:31 AST 89 units/L (5-40) H 04/02/18 04:31 ALT 54 units/L (7-56) 04/02/18 04:31 Alkaline Phosphatase 73 units/L (35-129) 04/02/18 04:31 Total Creatine Kinase 843 units/L (55-170) H 04/05/18 05:23 Total Protein 7.6 g/dL (6.3-8.2) 04/02/18 04:31 Albumin 3.8 g/dL (3.9-5) L 04/02/18 04:31 Albumin/Globulin Ratio 1.0 % 04/02/18 04:31 Urine Color Kylie (Yellow) 04/01/18 17:43 Urine Turbidity Slightly-cloudy (Clear) 04/01/18 17:43 Urine pH 8.0 (5.0-7.0) H 04/01/18 17:43 Ur Specific [place] 1.023 (1.003-1.030) 04/01/18 17:43 Urine Protein >500 mg/dL (Negative) 04/01/18 17:43 Urine Glucose (UA) Neg mg/dL (Negative) 04/01/18 17:43 Urine Ketones Neg mg/dL (Negative) 04/01/18 17:43 Urine Blood Neg (Negative) 04/01/18 17:43 Urine Nitrite Neg (Negative) 04/01/18 17:43 Urine Bilirubin Neg (Negative) 04/01/18 17:43 Urine Urobilinogen 4.0 mg/dL (<2.0) 04/01/18 17:43 Ur Leukocyte Esterase Neg (Negative) 04/01/18 17:43 Urine WBC (Auto) 2.0 /HPF (0.0-6.0) 04/01/18 17:43 Urine RBC (Auto) 3.0 /HPF (0.0-6.0) 04/01/18 17:43 U Epithel Cells (Auto) < 1.0 /HPF (0-13.0) 04/01/18 17:43 Hyaline Casts 3 /LPF 04/01/18 17:43 Urine Mucus 3+ /HPF 04/01/18 17:43 Urine Opiates Screen Presumptive negative 04/01/18 17:43 Urine Methadone Screen Presumptive negative 04/01/18 17:43 Ur Barbiturates Screen Presumptive negative 04/01/18 17:43 Ur Phencyclidine Scrn Presumptive negative 04/01/18 17:43 Ur Amphetamines Screen Presumptive negative 04/01/18 17:43 U Benzodiazepines Scrn Presumptive negative 04/01/18 17:43 Urine Cocaine Screen Presumptive negative 04/01/18 17:43 U Marijuana (THC) Screen Presumptive negative 04/01/18 17:43 Drugs of Abuse Note Disclamer 04/01/18 17:43 Plasma/Serum Alcohol < 0.01 % (0-0.07) 04/01/18 16:30
[2018-04-06] MEDS ORDERED: K-DUR PO ONE (11:00)
[2018-04-06] MEDS: LIBRIUM PO PRN ×2 (11:11→21:30)
--- NOTE | 2018-04-06 12:40 | Event Note ---
Date: 04/06/18
[2018-04-06] MEDS: ATIVAN PO PRN (19:57)
[2018-04-07] MEDS ORDERED: HALDOL IM ONE (01:39)
[2018-04-07] MEDS: ATIVAN PO PRN ×2 (05:35→14:45)
[2018-04-07] MEDS: LIBRIUM PO PRN (07:00)
[2018-04-07 07:01] LABS: BUN/Creatinine Ratio 28; Blood Urea Nitrogen 14 mg/dL (9-20); Calcium 8.9 mg/dL (8.4-10.2); Hemolysis Index 0
[2018-04-07] MEDS ORDERED: K-DUR PO ONE (10:00)
[2018-04-07 13:38] VITALS: BP 93/57
[2018-04-07] MEDS: FOLVITE PO SCH (14:44)
[2018-04-07] MEDS: VITAMIN B-1 PO SCH (14:44)
--- NOTE | 2018-04-07 17:34 | Discharge Summary ---
Providers - Providers Date of Admission: 04/01/18 17:28 Date of discharge: 04/07/18 Attending physician: GRANT CARCAMO 04/01/18 17:31 Consult to Physician [CONS] Routine Comment: Consulting Provider: JUAN COTE Physician Instructions: Reason For Exam: DTs 04/06/18 10:42 Physical Therapy Evaluation and Treat [CONS] Routine Comment: Reason For Exam: unsteady gait/alcohol withdrawal Primary care physician: [facility] DIRECT[facility] Hospitalization Condition: Serious Disposition: DC/[place]-06 HOME UNDER HOME [facility] Time spent for discharge: 32 min Core Measure Documentation - Palliative Care Palliative Care/ Comfort Measures: Not Applicable - Core Measures Any of the following diagnoses?: none Exam - Constitutional Vitals: Temp Pulse Resp BP Pulse Ox 97.8 F 61 20 93/57 100 04/07/18 13:33 04/07/18 13:33 04/07/18 13:33 04/07/18 13:33 04/07/18 13:33 General appearance: Present: no acute distress, well-nourished - EENT Eyes: Present: PERRL, EOM intact - Neck Neck: Present: supple, normal ROM - Respiratory Respiratory effort: normal Respiratory: bilateral: diminished, negative: rales, rhonchi, wheezing - Cardiovascular Rhythm: regular Heart Sounds: Present: S1 & S2 - Extremities Extremities: no ischemia, No edema - Abdominal General gastrointestinal: Present: soft, non-tender, non-distended, normal bowel sounds - Integumentary Integumentary: Present: clear, warm - Musculoskeletal Musculoskeletal: strength equal bilaterally - Psychiatric Psychiatric: appropriate mood/affect, cooperative - Neurologic Neurologic: CNII-XII intact, moves all extremities Plan Activity: advance as tolerated, no driving until cleared by PCP, fall precautions Diet: regular Special Instructions: physical therapy Additional Instructions: Strongly advised to quit alcohol intake. Advised to seek, alcohol rehabilitation. Do not drive, or operate heavy machinery under the influence of alcohol. Advised to drink plenty of oral fluids. Follow-up [facility] in 2-3 days Follow up with: PRIMARY CARE, [Primary Care Provider] - 3-5 Days Prescriptions: Famotidine/Ca Carb/Mag Hydrox [Pepcid Complete Tablet Chew] 1 each PO BID #30 tab.chew Folic Acid [Folvite] 1 mg PO QDAY #30 tablet LORazepam [Ativan] 0.5 mg PO BID PRN #6 tab PRN Reason: Agitation Thiamine [Vitamin B-1] 100 mg PO QDAY #30 tablet
== END 2018-04-07 18:30 | disposition home health service (06) | DRG 557 ==
LOC: ED 12:26 → CC1 17:28 → 3A 04-02 18:50
PROVIDERS: ADMIT Internal Medicine; ATTEND Internal Medicine
PROC: 3E0234Z Introduction of Serum, Toxoid and Vaccine into Muscle, Percutaneous Approach (ICD-10-PCS; principal; 2018-04-02)
DX: M62.82 Rhabdomyolysis (principal); G93.41 Metabolic encephalopathy; E87.1 Hypo-osmolality and hyponatremia; I10 Essential (primary) hypertension; F10.10 Alcohol abuse, uncomplicated; Y90.0 Blood alcohol level of less than 20 mg/100 ml; D69.6 Thrombocytopenia, unspecified; E87.6 Hypokalemia; E83.42 Hypomagnesemia; Z23 Encounter for immunization; Z82.49 Family history of ischemic heart disease and other diseases of the circulatory system
CPT/HCPCS: 36415; 70450; 80048; 80053; 80307; 80320; 81001; 82550; 82962; 83735; 84100; 85007; 85025; 90686; 90732; 93005; 93010; 94760; 96374; 96375; G0480; J1630; J2060; J3411; J3475; J3480; J7030